=== PATIENT | male | born 1965 | race Hispanic/Latino ===

== ENCOUNTER 2024-02-17 11:06 | Inpatient (IN) | payer MEDICAID ==
[~2024-02-17] VITALS: Ht 175.3 cm; Wt 108.9 kg
[2024-02-17 11:50] VITALS: TEMP 101.4
[2024-02-17] MEDS: acetaMINOPHEN 500 MG TABLET PO ONE (11:50)
[2024-02-17] MEDS: 0.9%NACL 1000ML 1,000 ML IV ONE (11:50)
[2024-02-17 11:59] LABS: BASOPHILS # (AUTO) 0.03 K/uL (0.00-0.20); BASOPHILS % (AUTO) 0.5 % (0.0-5.0); EOSINOPHILS # (AUTO) 0.35 K/uL (0.00-0.70); EOSINOPHILS % (AUTO) 5.4 % (0.0-8.0); HEMATOCRIT 30.7 % (42-54); IMMATURE GRANULOCYTE ABSOLUTE 0.02 K/uL (0-1); LYMPHOCYTES # (AUTO) 1.2 K/uL (1.0-4.8); LYMPHOCYTES % (AUTO) 18.7 % (21.0-51.0); MEAN CORPUSCULAR HEMOGLOBIN 32.5 pg (27.0-33.0); MEAN CORPUSCULAR HGB CONC 35.2 g/dL (32.0-36.0); MEAN CORPUSCULAR VOLUME 92.5 fL (79-99); MONOCYTES # (AUTO) 0.5 K/uL (0.1-1.0); MONOCYTES % (AUTO) 7.4 % (3.0-13.0); NEUTROPHILS # (AUTO) 4.4 K/uL (1.8-7.7); NEUTROPHILS % (AUTO) 67.7 % (40.0-77.0); PLATELET COUNT (AUTO) 137 K/uL (130-400); RED BLOOD CELL COUNT(AUTO) 3.32 MIL/uL (4.50-6.20); RED CELL DISTRIBUTION WIDTH 14.5 % (11.0-15.5); WHITE BLOOD COUNT (AUTO) 6.5 K/uL (4.8-10.8)
[2024-02-17 12:10] LABS: CREATININE 0.8 mg/dL (0.5-1.3); POTASSIUM 3.6 mmol/L (3.5-5.1)
--- NOTE | 2024-02-17 12:40 | ERN ---
General Chief Complaint: Fever Stated Complaint: INSECT BITES,RASH ON BOTH FOREARMS AND NECK X2WKS Time Seen by MD: 11:06 Time Seen by Midlevel: 11:06 Source: patient History of Present Illness Initial Comments This is a 58-year-old male with no significant past medical history presenting to the emergency department with a rash to his bilateral upper extremities. Patient states he slept at a new home yesterday and believes he may have been bitten by insects. This morning he woke up with insect bites. He does report the insect bites being pruritic in nature so he had been scratching all day. He developed a rash throughout his entire right and left forearm. He reports clear drainage from the area in an increase in pain. Denies any fever, chills, or any other symptoms at this time. Allergies: Coded Allergies: No Known Allergies (Unverified Allergy, Unknown, 02/17/24) Past Medical History Past Medical History: No Pertinent History Past Surgical History: None ROS Dictation CONSTITUTIONAL: Negative except for HPI HEAD/FACE: Negative except for HPI EENT: Negative except for HPI RESPIRATORY: Negative except for HPI GASTROINTESTINAL/ABDOMINAL: Negative except for HPI GENITOURINARY: Negative except for HPI MUSCULOSKELETAL: Negative except for HPI INTEGUMENTARY: Negative except for HPI NEUROLOGICAL/PSYCH: Negative except for HPI HEMATOLOGIC/LYMPHATIC: Negative except for HPI All Systems Negative, Except as noted above. 13 point review of systems assessed and all negative except for above. Physical Exam Physical Exam Dictation Vital Signs reviewed General Appearance: Alert, oriented x 3, no acute distress, well developed, nourished. Head and Face: non-traumatic. Eyes: PERRL, pink conjunctivas, eyelid no trauma, anterior chamber with arcus senilis. Ears: Pinnas intact and no signs of trauma or erythema ear canals clear and no discharge TM no erythema Nose: No discharge, no bleeding. Oropharynx: Mouth normal, tongue pink, pharynx clear,no erythema, tonsils no exudates, no abscesses noted, mucous membrane moist Neck: Supple, non-tender, no thyromegaly, no masses, no JVD, no bruits Breast:Deferred Chest:No tenderness, no crepitus, no paradoxical movement, no retractions Lungs:Clear, well-ventilated, symmetric, no rales, no wheezing, no rhonchi, no stridor, good breath sounds bilaterally Heart: Regular rate, regular rhythm, no murmur, no gallops Vascular: no peripheral edema, Abdomen: Soft, positive bowel sounds, nondistended, no guarding, nontender, no rebound, no masses no hepatomegaly, no splenomegaly, no Rdz's sign, no hernias. Rectal: Deferred Genital: Deferred Neurological: Normal speech, motor function intact, sensory function intact Musculoskeletal: Neck nontender, full range of motion, back nontender, full range of motion, Extremities: nontender, full range of motion Skin: His bilateral forearms erythematous with superficial skin sludging noted with cracks mostly on the posterior aspect of the forearm bilaterally. Erythema extends to the area about the elbow Arm is warm to touch bilaterally. He has associate skin cracking noted. Mild tenderness to palpation. Pulses are intact bilaterally Lymphatic: Deferred Results Laboratory and Microbiology Lab and Micro Result Laboratory Tests Test 02/17/24 11:46 White Blood Count 6.5 K/uL (4.8-10.8) Red Blood Count 3.32 MIL/uL (4.50-6.20) L Hemoglobin 10.8 g/dL (14.0-18.0) L Hematocrit 30.7 % (42-54) L Mean Corpuscular Volume 92.5 fL (79-99) Mean Corpuscular Hemoglobin 32.5 pg (27.0-33.0) Mean Corpuscular Hemoglobin Concent 35.2 g/dL (32.0-36.0) Red Cell Distribution Width 14.5 % (11.0-15.5) Platelet Count 137 K/uL (130-400) Mean Platelet Volume 9.6 fL (7.5-10.5) Immature Granulocyte % (Auto) 0.3 % (0-1) Neutrophils (%) (Auto) 67.7 % (40.0-77.0) Lymphocytes (%) (Auto) 18.7 % (21.0-51.0) L Monocytes (%) (Auto) 7.4 % (3.0-13.0) Eosinophils (%) (Auto) 5.4 % (0.0-8.0) Basophils (%) (Auto) 0.5 % (0.0-5.0) Neutrophils # (Auto) 4.4 K/uL (1.8-7.7) Lymphocytes # (Auto) 1.2 K/uL (1.0-4.8) Monocytes # (Auto) 0.5 K/uL (0.1-1.0) Eosinophils # (Auto) 0.35 K/uL (0.00-0.70) Basophils # (Auto) 0.03 K/uL (0.00-0.20) Absolute Immature Granulocyte (auto 0.02 K/uL (0-1) Nucleated Red Blood Cells 0.0 % (0.0-0.19) Sodium Level 131 mmol/L (136-145) L Potassium Level 3.6 mmol/L (3.5-5.1) Chloride Level 97 mmol/L (101-111) L Carbon Dioxide Level 25 mmol/L (21-32) Blood Urea Nitrogen 16 mg/dL (7-18) Creatinine 0.8 mg/dL (0.5-1.3) Glomerular Filtration Rate Calc 103 mL/min (>90) Random Glucose 125 mg/dL (70-105) H Lactic Acid Level 2.0 mmol/L (0.8-2.5) Total Calcium 8.6 mg/dL (8.5-10.1) Procalcitonin < 0.05 ng/mL (0.05-0.5) L Labs Reviewed?: Yes MDM MDM: This is a 58-year-old male with no significant past medical history who presented to the hospital secondary to redness in the right and left forearm. The patient states he staying in his friend's house around a week ago and slept in one of the beds. Afterwards he noted that he woke up with redness in the bilateral forearm. He tried placing calamine lotion and aloe vera and noted that his skin was sludging of. He was also having itching in the and the redness spread to the shoulder bilaterally. He noted some serous drainage from the arms. He denies being on any antibiotics and currently does not take any medications. Denied starting any new medications at home. He also noted swelling in the and forearm bilaterally. He is able to move his extremities without issues. Denied any numbness in the arms. Denied any chest pain, shortness of breath, abdominal pain, nausea, vomiting. Denied any falls, syncopal episode. He does work outside but denied falling down or brushing his arms with any plants. Labs in the ED were notable for white count of 6.5, hemoglobin was 10.8, platelet count [id number] K, sodium was 137, potassium was 3.6, creatinine was 0.8, blood glucose was 125. Blood work is stable however his physical examination is consistent with cellulitis. Patient is started on vancomycin and cefepime and will be admitted for further observation and management. Case was discussed with the hospitalist on-call who agrees to admit the patient. Differential diagnosis: Cellulitis, allergic reaction, contact dermatitis Rationale: Tests considered and ordered secondary to shared decision making include: Previous outside records reviewed: Old ER visits. Risk of complication and/or morbidity or mortality of patient management: None Medications-Per medication reconciliation Need for hospitalization: Patient does meet criteria for hospitalization. Need for emergency major/minor surgery: No There are no social concerns with this patient. Prescription drug management Prescriptions will include symptomatic care Patient's prior external medical records from other ER visits were reviewed by me as indicated. Prior testing and results from previous visits were reviewed. Prior tests were taken into account with medical decision making and resource utilization, independent historian/historians were used to obtain complete medical history. I independently interpreted the test that were performed, results were reviewed by me and considered findings on radiology if ordered. Medical management and examination interpretation discussions were had by me with other qualified healthcare professionals as indicated for the patient's care. ED Course Orders Procedure Category Date Status Time Cbc With Differential LAB 02/17/24 Complete 11:22 Basic Metabolic Panel LAB 02/17/24 Complete 11:22 Lactic Acid LAB 02/17/24 Complete 11:22 Procalcitonin LAB 02/17/24 Complete 11:22 Blood Cult KORI 02/17/24 In Process 11:22 0.9%Nacl 1000ml (Ns PHA 02/17/24 Complete 1000ml) 11:30 Acetaminophen 500mg PHA 02/17/24 Complete Tab (Tylenol 500mg T 11:30 12 Lead Ekg Tracing- EKG 02/17/24 Resulted Technical 11:24 Vancomycin Protocol PHA 02/17/24 In Process (Vancomycin Protocol 13:00 Cefepime Hcl 1 Gm PHA 02/17/24 In Process Vial (Maxipime 1 Gm Vi 13:00 Vancomycin 2gm/500 Ml PHA 02/17/24 Complete Bag (Vancomycin 2g 14:00 Vancomycin 1g/250ml PHA 02/18/24 In Process Kit (Vancomycin 1g/2 03:00 Vancomycin Trough LAB 02/20/24 Verified 14:00 Infectious Disease CONPHYSVC 02/17/24 Transmitted Consult 13:19 Edm Admit Bridge Order ADM 02/17/24 Transmitted 13:22 Current Medications Medications (Trade) Dose Ordered Sig/Jonatan Route PRN Reason Start Time Stop Time Status Last Admin Dose Admin Acetaminophen (TYLenol 500MG TAB) 1,000 mg ONCE ONCE PO 02/17/24 11:30 02/17/24 11:31 DC 02/17/24 11:50 Cefepime HCl (MAXipime 1 GM vial) 1 gm Q12H IVPB 02/17/24 13:00 02/27/24 12:59 02/17/24 13:52 Sodium Chloride 1,000 ml @ 0 mls/hr ONCE ONCE IV 02/17/24 11:30 02/17/24 11:31 DC 02/17/24 11:50 Vancomycin HCl (Vancomycin Protocol) 1 each AD IV 02/17/24 13:00 03/02/24 12:59 Vital Signs Date Time Temp Pulse Resp B/P (MAP) Pulse Ox O2 Delivery O2 Flow Rate FiO2 02/17/24 11:50 101.5 02/17/24 11:11 101.3 111 20 159/83 99 Room Air 0 DX & DISP Disposition: Discharge Decision to Admit Date: Feb 17, 2024 Departure Impression: Primary Impression: Right forearm cellulitis Additional Impression: Cellulitis of left forearm Condition: Stable Time of Disposition: 12:39 I have reviewed the case, and I agree with, Diagnosis and Plan I performed the substantive portion of the visit. I have reviewed and personally made and approve the management plan that is documented in the note by myself or the ALBINO. I acknowledge for responsibility for the patient's man agement plan. FELICIA TAPIA Feb 17, 2024 12:40
[2024-02-17] MEDS ORDERED: VANCOMYCIN PROTOCOL PER PHARMACY IV SCH (13:00)
[2024-02-17] MEDS: ceFEPime HCL 1 GM VIAL IVPB SCH (13:52)
--- NOTE | 2024-02-17 13:54 | HP ---
[facility] HISTORY AND PHYSICAL Date of Service: Feb 17, 2024 Time of Service: 13:54 HISTORY OF PRESENT ILLNESS: DATE OF SERVICE: 02/17/2024 This is a 58-year-old male with no significant past medical history who presented to the hospital secondary to redness in the right and left forearm. The patient states he staying in his friend's house around a week ago and slept in one of the beds. Afterwards he noted that he woke up with redness in the bilateral forearm. He tried placing calamine lotion and aloe vera and noted that his skin was sludging of. He was also having itching in the and the redness spread to the shoulder bilaterally. He noted some serous drainage from the arms. He denies being on any antibiotics and currently does not take any medications. Denied starting any new medications at home. He also noted swelling in the and forearm bilaterally. He is able to move his extremities without issues. Denied any numbness in the arms. Denied any chest pain, shortness of breath, abdominal pain, nausea, vomiting. Denied any falls, syncopal episode. He does work outside but denied falling down or brushing his arms with any plants. Labs in the ED were notable for white count of 6.5, hemoglobin was 10.8, platelet count [id number] K, sodium was 137, potassium was 3.6, creatinine was 0.8, blood glucose was 125. REVIEW OF SYSTEMS CONSTITUTIONAL: Denies fevers, chills, or night sweats. No unintentional weight loss reported. NEUROLOGICAL: Denies headache, amaurosis fugax, motor weakness, sensory deficit, vertigo/spinning sensation, gait abnormalities, or tremors. ENT: No hearing loss, otalgia, otorrhea, rhinitis, rhinorrhea, hoarseness, or sore throat. CARDIOVASCULAR: Denies any exertional angina, dyspnea on exertion, orthopnea, paroxysmal nocturnal dyspnea, palpitations, life-threatening arrhythmias, claudication. PULMONARY: Denies any shortness of breath, cough, phlegm/sputum, hemoptysis, pleuritic chest pain. SLEEP: Denies morning headaches, daytime somnolence or napping. Denies difficulty falling asleep, staying asleep, waking from sleep. Denies knowledge of snoring. GASTROINTESTINAL: Denies any type of dysphagia to either liquids or solids. Denies nausea, vomiting, pyrosis, early satiety, abdominal pain, diarrhea, constipation, or changes in stool consistency or caliber. Denies coffee-ground emesis, hematemesis, hematochezia, or melanotic stools. GENITOURINARY: Denies frequency, urgency, nocturia, hematuria or incontinence (Storage/Irritative symptoms.) Low urinary stream, straining to void, urinary intermittency or hesitancy, splitting of the voiding stream, terminal dribbling. ENDOCRINOLOGIC: Denies polyuria, polydipsia, polyphagia or heat/cold intolerances. HEMATOLOGIC: Denies thrombophilia/previous clots, or coagulopathy/bleeding disorders. ONCOLOGIC: Denies personal history of malignancy. DERMATOLOGIC: Denies rashes or pruritus. PSYCHIATRIC: Denies any suicidal or homicidal ideation. Denies hallucinations. PAST MEDICAL HISTORY: History of abdominal hernia PAST SURGICAL HISTORY: drinks 2-3 beers per week PAST SOCIAL HISTORY: Denied smoking, alcohol, drug use FAMILY HISTORY: Denied any pertinent family history Coded Allergies: No Known Allergies (Unverified Allergy, Unknown, 02/17/24) PHYSICAL EXAM GENERAL APPEARANCE: The patient is awake, alert, and oriented, in no acute cardiopulmonary distress. NEUROLOGICAL: Cranial nerves II-XII grossly intact. Motor is 5/5 in bilateral upper and lower extremities proximal to distal. No sensory deficits. HEENT: Face is symmetric. Pupils are equal and reactive. Extraocular movements are intact. NECK: Supple. No JVD. No thyromegaly. No submental, submandibular, pre- /postauricular, occipital or supraclavicular lymphadenopathy. CHEST: Normal chest expansion. No Telemetry. LUNGS: Absence of any rales, rhonchi or any wheezing. CARDIOVASCULAR: Regular. S1 and S2 normal. No appreciable rubs, murmurs or gallops. ABDOMEN: Soft, nontender, and nondistended. There is no rebound, voluntary guarding, or rigidity. : Deferred. No Garibay. EXTREMITIES: His bilateral forearms erythematous with superficial skin sludging noted with cracks mostly on the posterior aspect of the forearm bilaterally. Erythema extends to the area about the elbow Arm is warm to touch bilaterally. He has associate skin cracking noted. Mild tenderness to palpation. Pulses are intact bilaterally SKIN: No skin breakdown. Vital Sign (Last 24 Hours) 02/17/24 02/17/24 11:11 11:50 Temp 101.5 Pulse 111 Resp 20 B/P (MAP) 159/83 Pulse Ox 99 O2 Delivery Room Air O2 Flow Rate 0 LABS: Laboratory: Test 02/17/24 11:46 Range/Units White Blood Count 6.5 4.8-10.8 K/uL Red Blood Count 3.32 L 4.50-6.20 MIL/uL Hemoglobin 10.8 L 14.0-18.0 g/dL Hematocrit 30.7 L 42-54 % Mean Corpuscular Volume 92.5 79-99 fL Mean Corpuscular Hemoglobin 32.5 27.0-33.0 pg Mean Corpuscular Hemoglobin Concent 35.2 32.0-36.0 g/dL Red Cell Distribution Width 14.5 11.0-15.5 % Platelet Count 137 130-400 K/uL Mean Platelet Volume 9.6 7.5-10.5 fL Immature Granulocyte % (Auto) 0.3 0-1 % Neutrophils (%) (Auto) 67.7 40.0-77.0 % Lymphocytes (%) (Auto) 18.7 L 21.0-51.0 % Monocytes (%) (Auto) 7.4 3.0-13.0 % Eosinophils (%) (Auto) 5.4 0.0-8.0 % Basophils (%) (Auto) 0.5 0.0-5.0 % Neutrophils # (Auto) 4.4 1.8-7.7 K/uL Lymphocytes # (Auto) 1.2 1.0-4.8 K/uL Monocytes # (Auto) 0.5 0.1-1.0 K/uL Eosinophils # (Auto) 0.35 0.00-0.70 K/uL Basophils # (Auto) 0.03 0.00-0.20 K/uL Absolute Immature Granulocyte (auto 0.02 0-1 K/uL Nucleated Red Blood Cells 0.0 0.0-0.19 % Sodium Level 131 L 136-145 mmol/L Potassium Level 3.6 3.5-5.1 mmol/L Chloride Level 97 L 101-111 mmol/L Carbon Dioxide Level 25 21-32 mmol/L Blood Urea Nitrogen 16 7-18 mg/dL Creatinine 0.8 0.5-1.3 mg/dL Glomerular Filtration Rate Calc 103 >90 mL/min Random Glucose 125 H 70-105 mg/dL Lactic Acid Level 2.0 0.8-2.5 mmol/L Total Calcium 8.6 8.5-10.1 mg/dL Procalcitonin < 0.05 L 0.05-0.5 ng/mL Current Medications Medications (Trade) Dose Ordered Sig/Jonatan Route PRN Reason Start Time Stop Time Status Last Admin Dose Admin Cefepime HCl (MAXipime 1 GM vial) 1 gm Q12H IVPB 02/17/24 13:00 02/27/24 12:59 Vancomycin HCl 250 ml @ 125 mls/hr Q12H IV 02/18/24 03:00 02/28/24 02:59 Vancomycin HCl (Vancomycin Protocol) 1 each AD IV 02/17/24 13:00 03/02/24 12:59 DIAGNOSTICS / RADIOLOGY: [ ] ASSESSMENT: Sepsis secondary to bilateral cellulitis POA Hypertension likely reactive History of abdominal hernia Normocytic anemia PLAN: - patient to be admitted to [facility] -in reference to cellulitis. The patient will be started on vanc cefepime and doxycycline. We will keep the elevated. We will request consultation with Infectious Disease for antibiotic stewardship. We will also do x-ray of the. Patient has received tetanus shot before. Patient to be started on NS for gentle hydration. Additionally he will be on morphine and Toradol p.r.n. for pain control -check procalcitonin, CRP, TSH, hemoglobin A1c. - consult wound care - further orders per hospitalization course. Advanced Care Planning Which of the following were discussed: Hospice care: Yes __ No _x_ Therapeutic options: Yes __ No __ Advance directives: Yes __ No __ Other discussions: pt is full code Discussed with who?: patient (Patient, family or surrogates) Voluntary nature of this service was explained to the patient? Yes _x_ No __ Amount of time spent: 25 minutes CORINE Khan MD, MD Feb 17, 2024 13:54
[2024-02-17] MEDS ORDERED: acetaMINOPHEN 500 MG TABLET PO PRN (14:00)
[2024-02-17 14:30] LABS: INR 1.15 (0.85-1.15); PROTHROMBIN TIME 12.3 SEC (9.6-11.6)
[2024-02-17 14:32] LABS: PARTIAL THROMBOPLASTIN TIME 26.8 SEC (26.3-35.5)
[2024-02-17 14:36] LABS: HEMOGLOBIN A1C 5.1 % (4.0-6.0)
[2024-02-17 14:58] LABS: THYROID STIMULATING HORMONE 2.94 uIU/mL (0.36-3.74)
[2024-02-17] MEDS: VANCOMYCIN 2GM/500 ML BAG 500 ML IV ONE (15:25)
[2024-02-17] MEDS ORDERED: PoTASSium chl 10% ELIXIR 20MEQ 20 MEQ/15 ML UDCUP PO PRN (15:30)
[2024-02-17] MEDS ORDERED: MAGNESIUM 2GM PREMIX 50ML 50 ML IV PRN (15:30)
[2024-02-17] MEDS ORDERED: PoTASSium chloRIDE 20MEQ/100ML 100 ML IV PRN (15:30)
[2024-02-17] MEDS: DOXYCYCLINE 100MG+NS 250ML 250 ML IV SCH (15:35)
[2024-02-17] MEDS: morPHINE 2 MG SYG IVP PRN (16:57)
--- NOTE | 2024-02-17 17:18 | HMCIMG ---
WRIST 2VWS RT HISTORY: Cellulitis and swelling COMPARISON: None TECHNIQUE: 2 images of right wrist were obtained. FINDINGS: Erosive changes are seen of scaphoid, lunate. Radiocarpal joint space narrowing is seen. There is no acute displaced fracture or dislocation. Degenerative changes are seen. IMPRESSION: 1. Findings as described above.
--- NOTE | 2024-02-17 17:20 | HMCIMG ---
WRIST 2VWS LT HISTORY: Cellulitis, swelling COMPARISON: None TECHNIQUE: 2 images of left wrist were obtained. FINDINGS: Radiocarpal joint space narrowing is seen. There is no acute displaced fracture or dislocation. Degenerative changes are seen. IMPRESSION: 1. Findings as described above.
--- NOTE | 2024-02-17 17:27 | HMCIMG ---
FOREARM 2VWS LT HISTORY: Cellulitis and swelling COMPARISON: None TECHNIQUE: 2 images of left forearm were obtained. FINDINGS: There is no acute displaced fracture or dislocation. There is soft tissue swelling. Degenerative changes are seen. IMPRESSION: 1. Findings as described above.
--- NOTE | 2024-02-17 17:33 | HMCIMG ---
SHOULDER COMP 2+VWS RT HISTORY: Cellulitis COMPARISON: None TECHNIQUE: 2 images of right shoulder were obtained. FINDINGS: There is no acute displaced fracture or dislocation. Degenerative changes are seen. IMPRESSION: 1. Findings as described above.
--- NOTE | 2024-02-17 17:34 | HMCIMG ---
FOREARM 2VWS RT HISTORY: Cellulitis COMPARISON: None TECHNIQUE: 2 images of right forearm were obtained. FINDINGS: There is no acute displaced fracture or dislocation. There is soft tissue swelling. Degenerative changes are seen. IMPRESSION: 1. Findings as described above.
--- NOTE | 2024-02-17 17:51 | HMCIMG ---
SHOULDER COMP 2+VWS LT HISTORY: Cellulitis, swelling COMPARISON: None TECHNIQUE: 2 images of left shoulder were obtained FINDINGS: There is no acute displaced fracture or dislocation. Degenerative changes are seen. IMPRESSION: 1. Findings as described above.
[2024-02-17] MEDS: 0.9%NACL 1000ML 1,000 ML IV SCH (18:41)
--- NOTE | 2024-02-17 18:58 | EKG ---
[facility] Test Date: 2024-02-17 Test Time: 11:27:34 Pat Name: STEW THORNTON Department: EDHIP Room: ED [facility] Gender: M Inside Sales Consultant: [id number] : 1965 Requested By: FELICIA TAPIA Order Number: [id number] Reading MD: Jose Luis Benson Measurements Intervals [place] Rate: 88 P: 34 CA: 159 QRS: 11 QRSD: 91 T: 38 QT: 347 QTc: 421 Interpretive Statements Sinus rhythm No previous ECG available for comparison Electronically Signed On 02-17-2024 19:11:04 GASTROENTEROLOGY NURSE PRACTITIONER by Jose Luis Benson Please click the below link to view image of tracing.
[2024-02-17] MEDS ORDERED: chlordiazePOXIDE HCL 25 MG CAP PO PRN (19:30)
[2024-02-17] MEDS ORDERED: LORazepam 2 MG/ML 1 ML VIAL IVP PRN (19:30)
[2024-02-17] MEDS ORDERED: PHARMACY COMMUNICATION MISC PRN (19:30)
[2024-02-17] MEDS ORDERED: hydrALAZine 20MG/ML VIAL IV PRN (19:30)
[2024-02-17] MEDS: hydrALAZine 20MG/ML VIAL IV PRN (19:35)
[2024-02-17 21:30] VITALS: BP 168/79; PULSE 86; RESP 22; TEMP 98
[2024-02-17] MEDS: amLODIPine 5 MG TAB PO ONE (22:26)
[2024-02-17] MEDS: FAMOTIDINE 20MG VIAL IV SCH (22:27)
[2024-02-17] MEDS: NITROGLYCERIN 1GM OINT 1 INCH/1GM TD SCH (22:27)
[2024-02-17] MEDS: DiphenhydrAMINE HCL 50 MG/ML VIAL IV PRN (23:09)
--- NOTE | 2024-02-18 01:21 | CONS ---
CONSULTING PHYSICIAN: Adelfo Wheeler MD CONSULTING SERVICE: Hospitalist Service. REASON FOR CONSULTATION: Bilateral forearm cellulitis. HISTORY OF PRESENT ILLNESS: This is a 58-year-old gentleman, no history of any significant medical problems, has been brought to [facility] with significant erythema, cellulitis, and swelling of the bilateral forearms. He said he is from [place] and he slept in one of his brother's house, which has not been used for quite some time and he suspects some bugs injuring his skin. He tried to scratch and therefore developed multiple rashes on the bilateral forearms. No history of any trauma or falls. No history of any fevers or chills. PAST MEDICAL HISTORY: Nothing significant. PAST SURGICAL HISTORY: Abdominal hernia. SOCIAL HISTORY: Does not smoke, alcohol or drugs. FAMILY HISTORY: Nothing significant. ALLERGIES: None. MEDICATIONS: None. PHYSICAL EXAMINATION: GENERAL: The patient is awake, alert, oriented x 3, moderately built and nourished. VITAL SIGNS: Temperature is 101.5, pulse is 111, respiratory rate is 20, blood pressure 159/83, pulse oximetry 99% on room air. HEENT: Normocephalic, atraumatic. NECK: No engorged vein. CHEST: Symmetric movement is seen. ABDOMEN: Soft, nontender, nondistended. No pelvic tenderness on compression or distraction. EXTREMITIES: Examination of the right forearm and right upper extremity shows significant swelling of the right forearm presents. The swelling is soft and compressible. Multiple rashes present on the right forearm on extensor and volar aspect. Erythema present also, some abrasions and scratches present on the forearm. Fingers are warm and pink. Good capillary refill is present. Motor, sensory is grossly intact. Radial arteries 2+. Examination of the left forearm shows again swelling present. Fingers are warm and pink. Good capillary refill is present. Erythema present. Mild warmth present. Significant rashes present. INVESTIGATIONS: White cell count is 6.5, hemoglobin 10.8, hematocrit is 30.7. X-rays of both the right and left wrist does not show any obvious fractures or dislocation. ASSESSMENT AND PLAN: A 58-year-old man with bilateral forearm cellulitis. The patient will keep the arm elevated. Adequate pain control. Then, ice packs and then if the patient has any problems related to increased swelling or compartment syndrome or anything similar, the patient will need orthopedic intervention, but otherwise we will follow the patient peripherally. No surgery for right now. TID: [id number] RECEIPT: [id number]
[2024-02-18 03:28] VITALS: BP 131/63; PULSE 76; RESP 21; TEMP 98.4
[2024-02-18 05:01] LABS: BASOPHILS # (AUTO) 0.03 K/uL (0.00-0.20); BASOPHILS % (AUTO) 0.6 % (0.0-5.0); EOSINOPHILS # (AUTO) 0.44 K/uL (0.00-0.70); EOSINOPHILS % (AUTO) 8.6 % (0.0-8.0); IMMATURE GRANULOCYTE ABSOLUTE 0.03 K/uL (0-1); LYMPHOCYTES # (AUTO) 1.3 K/uL (1.0-4.8); LYMPHOCYTES % (AUTO) 26.1 % (21.0-51.0); MEAN CORPUSCULAR HEMOGLOBIN 32.9 pg (27.0-33.0); MEAN CORPUSCULAR HGB CONC 34.5 g/dL (32.0-36.0); MEAN CORPUSCULAR VOLUME 95.4 fL (79-99); MONOCYTES # (AUTO) 0.4 K/uL (0.1-1.0); MONOCYTES % (AUTO) 8.2 % (3.0-13.0); NEUTROPHILS # (AUTO) 2.9 K/uL (1.8-7.7); NEUTROPHILS % (AUTO) 55.9 % (40.0-77.0); PLATELET COUNT (AUTO) 130 K/uL (130-400); RED BLOOD CELL COUNT(AUTO) 3.25 MIL/uL (4.50-6.20); RED CELL DISTRIBUTION WIDTH 14.3 % (11.0-15.5); WHITE BLOOD COUNT (AUTO) 5.1 K/uL (4.8-10.8)
[2024-02-18 05:12] LABS: CREATININE 0.8 mg/dL (0.5-1.3); POTASSIUM 3.5 mmol/L (3.5-5.1)
[2024-02-18] MEDS: FOLic ACID 1 MG TABLET PO SCH (07:53)
[2024-02-18] MEDS: amLODIPine 5 MG TAB PO SCH (07:53)
[2024-02-18] MEDS: THIAMINE HCL 100 MG/ML 2ML VIAL IVP SCH (07:54)
[2024-02-18 08:00] VITALS: BP 162/90; PULSE 71; RESP 18; TEMP 98.6; O2SAT 99
[2024-02-18] MEDS: VANCOMYCIN 1G/250ML KIT 250 ML IV SCH (08:48)
[2024-02-18 12:00] VITALS: BP 163/88; PULSE 81; RESP 18; TEMP 98.2
[2024-02-18 12:25] LABS: AMPHET/METH SCREEN,URINE NEGATIVE (NEGATIVE); BARBITURATE SCREEN, URINE POSITIVE (NEGATIVE); BENZODIAZEPINES SCREEN,URINE NEGATIVE (NEGATIVE); CANNABINOID SCREEN,URINE POSITIVE (NEGATIVE); COCAINE SCREEN,URINE NEGATIVE (NEGATIVE); OPIATE SCREEN,URINE NEGATIVE (NEGATIVE); PHENCYCLIDINE SCREEN,URINE NEGATIVE (NEGATIVE)
[2024-02-18] MEDS: CLOTRIMAZOLE/BETAMETHASONE DIP 45 GM CREAM.GM. TP SCH (12:56)
--- NOTE | 2024-02-18 13:33 | PN ---
[facility] PROGRESS NOTE Date of Service: Feb 18, 2024 Time of Service: 13:31 Patient was seen and examined on the medical floor and case discussed with RN. Case also discussed with infectious disease physician Dr. Zapata. His antibiotics have been adjusted and he is also antifungal cream for his itchy bilateral forearms with significant cellulitis and scratch perez SUBJECTIVE: [ ] REVIEW OF SYSTEMS CONSTITUTIONAL: Denies fevers, chills, or night sweats. No unintentional weight loss reported. NEUROLOGICAL: Denies headache, amaurosis fugax, motor weakness, sensory def icit, vertigo/spinning sensation, gait abnormalities, or tremors. ENT: No hearing loss, otalgia, otorrhea, rhinitis, rhinorrhea, hoarseness, or sore throat. CARDIOVASCULAR: Denies any exertional angina, dyspnea on exertion, orthopnea, paroxysmal nocturnal dyspnea, palpitations, life-threatening arrhythmias, claudication. PULMONARY: Denies any shortness of breath, cough, phlegm/sputum, hemoptysis, pleuritic chest pain. SLEEP: Denies morning headaches, daytime somnolence or napping. Denies difficulty falling asleep, staying asleep, waking from sleep. Denies knowledge of snoring. GASTROINTESTINAL: Denies any type of dysphagia to either liquids or solids. Denies nausea, vomiting, pyrosis, early satiety, abdominal pain, diarrhea, constipation, or changes in stool consistency or caliber. Denies coffee-ground emesis, hematemesis, hematochezia, or melanotic stools. GENITOURINARY: Denies frequency, urgency, nocturia, hematuria or incontinence (Storage/Irritative symptoms.) Low urinary stream, straining to void, urinary intermittency or hesitancy, splitting of the voiding stream, terminal dribbling. ENDOCRINOLOGIC: Denies polyuria, polydipsia, polyphagia or heat/cold intolerances. HEMATOLOGIC: Denies thrombophilia/previous clots, or coagulopathy/bleeding disorders. ONCOLOGIC: Denies personal history of malignancy. DERMATOLOGIC: Denies rashes or pruritus. PSYCHIATRIC: Denies any suicidal or homicidal ideation. Denies hallucinations. PHYSICAL EXAM GENERAL APPEARANCE: The patient is awake, alert, and oriented, in no acute cardiopulmonary distress. NEUROLOGICAL: Cranial nerves II-XII grossly intact. Motor is 5/5 in bilateral upper and lower extremities proximal to distal. No sensory deficits. HEENT: Face is symmetric. Pupils are equal and reactive. Extraocular movements are intact. NECK: Supple. No JVD. No thyromegaly. No submental, submandibular, pre- /postauricular, occipital or supraclavicular lymphadenopathy. CHEST: Normal chest expansion. No Telemetry. LUNGS: Absence of any rales, rhonchi or any wheezing. CARDIOVASCULAR: Regular. S1 and S2 normal. No appreciable rubs, murmurs or gallops. ABDOMEN: Soft, nontender, and nondistended. There is no rebound, voluntary guarding, or rigidity. : Deferred. No Garibay. EXTREMITIES: His bilateral forearms erythematous with superficial skin sludging noted with cracks mostly on the posterior aspect of the forearm bilaterally. Erythema extends to the area about the elbow Arm is warm to touch bilaterally. He has associate skin cracking noted. Mild tenderness to palpation. Pulses are intact bilaterally SKIN: No skin breakdown. Vital Signs (last 8hr) Date Time Temp Pulse Resp B/P (MAP) Pulse Ox O2 Delivery O2 Flow Rate FiO2 02/18/24 08:00 99 Room Air* 0 21 02/18/24 08:00 98.6 71 18 162/90 99 Room Air 21 LABS: Laboratory: Test 02/18/24 04:12 02/17/24 16:44 02/17/24 14:10 02/17/24 11:40 Range/Units White Blood Count 5.1 4.8-10.8 K/uL Red Blood Count 3.25 L 4.50-6.20 MIL/uL Hemoglobin 10.7 L 14.0-18.0 g/dL Hematocrit 31.0 L 42-54 % Mean Corpuscular Volume 95.4 79-99 fL Mean Corpuscular Hemoglobin 32.9 27.0-33.0 pg Mean Corpuscular Hemoglobin Concent 34.5 32.0-36.0 g/dL Red Cell Distribution Width 14.3 11.0-15.5 % Platelet Count 130 130-400 K/uL Mean Platelet Volume 9.8 7.5-10.5 fL Immature Granulocyte % (Auto) 0.6 0-1 % Neutrophils (%) (Auto) 55.9 40.0-77.0 % Lymphocytes (%) (Auto) 26.1 21.0-51.0 % Monocytes (%) (Auto) 8.2 3.0-13.0 % Eosinophils (%) (Auto) 8.6 H 0.0-8.0 % Basophils (%) (Auto) 0.6 0.0-5.0 % Neutrophils # (Auto) 2.9 1.8-7.7 K/uL Lymphocytes # (Auto) 1.3 1.0-4.8 K/uL Monocytes # (Auto) 0.4 0.1-1.0 K/uL Eosinophils # (Auto) 0.44 0.00-0.70 K/uL Basophils # (Auto) 0.03 0.00-0.20 K/uL Absolute Immature Granulocyte (auto 0.03 0-1 K/uL Nucleated Red Blood Cells 0.0 0.0-0.19 % Sodium Level 137 136-145 mmol/L Potassium Level 3.5 3.5-5.1 mmol/L Chloride Level 103 101-111 mmol/L Carbon Dioxide Level 26 21-32 mmol/L Blood Urea Nitrogen 9 7-18 mg/dL Creatinine 0.8 0.5-1.3 mg/dL Glomerular Filtration Rate Calc 103 >90 mL/min Random Glucose 89 70-105 mg/dL Total Calcium 8.2 L 8.5-10.1 mg/dL Lactic Acid Level 1.3 0.8-2.5 mmol/L Prothrombin Time 12.3 H 9.6-11.6 SEC Prothromb Time International Ratio 1.15 0.85-1.15 Activated Partial Thromboplast Time 26.8 26.3-35.5 SEC Hemoglobin A1c 5.1 4.0-6.0 % Estimated Average Glucose (eAG) 100 70-126 mg/dL Total Creatine Kinase 58 21-232 U/L C-Reactive Protein, Quantitative 13.60 H 0.5-3.0 mg/L Procalcitonin < 0.05 L 0.05-0.5 ng/mL Thyroid Stimulating Hormone (TSH) 2.94 0.36-3.74 uIU/mL Urine Opiates Screen NEGATIVE NEGATIVE Urine Barbiturates Screen POSITIVE H NEGATIVE Urine Phencyclidine Screen NEGATIVE NEGATIVE Urine Amphetamines Screen NEGATIVE NEGATIVE Urine Benzodiazepines Screen NEGATIVE NEGATIVE Urine Cocaine Screen NEGATIVE NEGATIVE Urine Marijuana (THC) Screen POSITIVE H NEGATIVE Current Medications Medications (Trade) Dose Ordered Sig/Jonatan Route PRN Reason Start Time Stop Time Status Last Admin Dose Admin Acetaminophen (TYLenol 500MG TAB) 500 mg Q6H PRN PO MILD PAIN (1-3) 02/17/24 14:00 03/18/24 13:59 Amlodipine Besylate (NorvASC 5MG TAB) 5 mg DAILY PO 02/18/24 09:00 03/19/24 08:59 02/18/24 07:53 5 MG Cefepime HCl (MAXipime 1 GM vial) 1 gm Q12H IVPB 02/17/24 13:00 02/18/24 12:22 DC 02/18/24 12:07 1 GM Chlordiazepoxide HCl (LIBrium 25 MG CAP) 25 mg Q2H PRN PO ALCOHOL WITHDRAWAL PROTOCOL 02/17/24 19:30 02/24/24 19:29 Clotrimazole (Lotrisone Cream) 1 APPL AM TP 02/18/24 12:30 03/19/24 12:29 02/18/24 12:56 1 GM Diphenhydramine HCl (BENAdryl INJ) 25 mg Q4H PRN IV ITCHING 02/17/24 23:00 03/18/24 22:59 02/17/24 23:09 25 MG Doxycycline Hyclate 250 ml @ 125 mls/hr Q12H IV 02/17/24 14:00 02/18/24 12:22 DC 02/18/24 04:42 125 MLS/HR Famotidine (Pepcid 20mg Vial) 20 mg BID IV 02/17/24 21:00 03/18/24 20:59 02/18/24 07:54 20 MG Fluconazole (DiFLUCan 100 mg TAB) 200 mg DAILY PO 02/19/24 09:00 03/20/24 08:59 Folic Acid (FOLic ACID 1 MG TABLET) 1 mg DAILY PO 02/18/24 09:00 03/19/24 08:59 02/18/24 07:53 1 MG Hydralazine HCl (APRESOLine 20MG INJ) 10 mg Q2H PRN IV ADMINISTER FOR SBP > 160 02/17/24 19:30 03/18/24 19:29 02/17/24 19:35 10 MG Hydralazine HCl (APRESOLine 20MG INJ) 10 mg Q6H PRN IV ADMINISTER FOR SBP > 180 02/17/24 19:30 02/17/24 19:27 DC Ketorolac Tromethamine (toRADol) 15 mg Q6H PRN IV MODERATE PAIN (4-6) 02/17/24 14:00 02/22/24 13:59 Lorazepam (AtiVAN) 1 mg Q4H PRN IVP ALCOHOL WITHDRAWAL PROTOCOL 02/17/24 19:30 02/24/24 19:29 Magnesium Sulfate 50 ml @ 0 mls/hr PROTOCOL PRN IV hypomagnesemia 02/17/24 15:30 03/18/24 15:29 Morphine Sulfate (morPHINE 2MG SYG) 2 mg Q6H PRN IVP SEVERE PAIN (7-10) 02/17/24 14:00 02/24/24 13:59 02/17/24 18:41 2 MG Nitroglycerin (Nitroglycerin 1gm Oint) 1 inch Q8H TD 02/17/24 19:30 03/18/24 19:29 02/17/24 22:27 1 [facility] Pharmacy Profile Note (Pharmacy Communication) 1 each PROTOCOL PRN MISC ETOH Withdrawal Score changes 02/17/24 19:30 02/17/24 19:24 DC Potassium Chloride 100 ml @ 100 mls/hr AD PRN IV POTASSIUM PROTOCOL 02/17/24 15:30 03/18/24 15:29 Potassium Chloride (K-Dur/Klor-Con 20meq) 20 meq AD PRN PO POTASSIUM PROTOCOL 02/17/24 15:30 03/18/24 15:29 Potassium Chloride (KCl 10% Elixir 20meq/15ml) 20 meq AD PRN PO POTASSIUM PROTOCOL 02/17/24 15:30 03/18/24 15:29 Sodium Chloride 1,000 ml @ 125 mls/hr Q8H IV 02/17/24 14:00 03/18/24 13:59 02/18/24 08:05 125 MLS/HR Thiamine HCl (Vitamin B-1) 100 mg DAILY IVP 02/18/24 09:00 03/19/24 08:59 02/18/24 07:54 100 MG Vancomycin HCl 250 ml @ 125 mls/hr Q12H IV 02/18/24 03:00 02/28/24 02:59 02/18/24 08:48 125 MLS/HR Vancomycin HCl (Vancomycin Protocol) 1 each AD IV 02/17/24 13:00 03/02/24 12:59 DIAGNOSTICS / RADIOLOGY: [ ] ASSESSMENT: Sepsis secondary to bilateral cellulitis POA Hypertension likely reactive History of abdominal hernia Normocytic anemia PLAN: - patient to be admitted to [facility] -in reference to cellulitis. ID evaluated and adjusted antibiotics. Additionally he will be on morphine and Toradol p.r.n. for pain control -check procalcitonin, CRP, TSH, hemoglobin A1c. -wound care - further orders per hospitalization course. Advanced Care Planning Which of the following were discussed: Hospice care: Yes __ No _x_ Therapeutic options: Yes __ No __ Advance directives: Yes __ No __ Other discussions: pt is full code Discussed with who?: patient (Patient, family or surrogates) Voluntary nature of this service was explained to the patient? Yes _x_ No __ Amount of time spent: 25 minutes MD DAVID Santiago SATISH MD Feb 18, 2024 13:33
[2024-02-18 16:00] VITALS: BP 174/77; PULSE 79; RESP 17; TEMP 98.7
[2024-02-18 20:00] VITALS: BP 137/77; PULSE 71; RESP 22; TEMP 98.4
[2024-02-18 22:16] VITALS: O2SAT 100
[2024-02-19] VITALS (8 sets, daily range): BP systolic 132–159; BP diastolic 71–83; PULSE 57–73; RESP 18–22; TEMP 97.8–98.5; O2SAT 99–100
[2024-02-19 04:00] LABS: BASOPHILS # (AUTO) 0.03 K/uL (0.00-0.20); BASOPHILS % (AUTO) 0.6 % (0.0-5.0); EOSINOPHILS # (AUTO) 0.29 K/uL (0.00-0.70); EOSINOPHILS % (AUTO) 5.9 % (0.0-8.0); IMMATURE GRANULOCYTE ABSOLUTE 0.02 K/uL (0-1); LYMPHOCYTES # (AUTO) 1.5 K/uL (1.0-4.8); LYMPHOCYTES % (AUTO) 30.7 % (21.0-51.0); MEAN CORPUSCULAR HEMOGLOBIN 32.2 pg (27.0-33.0); MEAN CORPUSCULAR HGB CONC 34.7 g/dL (32.0-36.0); MEAN CORPUSCULAR VOLUME 92.8 fL (79-99); MONOCYTES # (AUTO) 0.4 K/uL (0.1-1.0); MONOCYTES % (AUTO) 7.5 % (3.0-13.0); NEUTROPHILS # (AUTO) 2.7 K/uL (1.8-7.7); NEUTROPHILS % (AUTO) 54.9 % (40.0-77.0); PLATELET COUNT (AUTO) 129 K/uL (130-400); RED BLOOD CELL COUNT(AUTO) 3.45 MIL/uL (4.50-6.20); WHITE BLOOD COUNT (AUTO) 4.9 K/uL (4.8-10.8)
[2024-02-19 04:14] LABS: CREATININE 0.6 mg/dL (0.5-1.3); POTASSIUM 3.3 mmol/L (3.5-5.1)
[2024-02-19] MEDS: fluCONazole 100 MG TAB PO SCH (08:49)
[2024-02-19] MEDS: ENOXAPARIN SODIUM 30 MG/0.3 ML SQ SCH (08:54)
--- NOTE | 2024-02-19 10:25 | CONS ---
DATE OF SERVICE: 02/18/2024. INFECTIOUS DISEASE CONSULTATION NOTE REQUESTING PHYSICIAN: Dr. Adelfo Wheeler. REASON FOR CONSULTATION: Bilateral upper extremity. HISTORY OF PRESENT ILLNESS: This is a 58-year-old male with obesity, came to the Emergency Room with bilateral forearm swelling and redness. The patient also claims symptoms started suddenly after waking up. The patient claims he came from [place] to help his brother was seen in . The patient found with cellulitis and some excoriation and was admitted. No fever or chills. Imaging has been done, which came back negative. No rashes or itchiness. PAST MEDICAL HISTORY: Obesity. PAST SURGICAL HISTORY: Ventral hernia repair. ALLERGIES: No known drug allergy. HOME MEDICATIONS: Reviewed. SOCIAL HISTORY: No alcohol, tobacco or illicit drug use. FAMILY HISTORY: Noncontributory. REVIEW OF SYSTEMS: Greater than 10 systems were reviewed, negative except as documented above. PHYSICAL EXAMINATION: GENERAL: A middle-aged male, awake. VITAL SIGNS: Temperature 98.6, pulse 71, respiratory rate 18, and BP 162/90. EYES: No icterus. Pupils equal and reactive. HENT: No oral thrush seen. Moist oral mucosa. NECK: Supple, no JVD or thyromegaly. LUNGS: Good air entry. No rales, no rhonchi. CARDIOVASCULAR: S1, S2 regular. No murmur heard. ABDOMEN: Obese, soft, and nontender. Bowel sounds present. CENTRAL NERVOUS SYSTEM: Awake, alert, and oriented x 3. No focal deficits. SKIN: The patient has 3 lesions involving the neck area and bilateral forearms. No drainage is seen. LYMPHATIC: No peripheral lymphadenopathy. BACK: No deformity, no pressure ulcer. EXTREMITIES: The patient with possible dermatophytosis involving both forearms. LABORATORY DATA: Sodium 137, potassium 3.5, BUN 9, and creatinine 0.8. WBC 5.1, hemoglobin 10.7, and platelet 130. ASSESSMENT: A 58-year-old male with multiple problems, which include: * Right upper extremity cellulitis. * Left upper extremity cellulitis. * Possible dermatophytosis. * Obesity. PLAN: * Discontinue doxycycline. * Discontinue cefepime. * Continue vancomycin. * Start the patient on fluconazole. * ____ to dyskinesia. * Continue pain management. * Continue GI prophylaxis. * The patient will be followed up closely. TID: [id number] RECEIPT: [id number]
--- NOTE | 2024-02-19 13:15 | PN ---
[facility] PROGRESS NOTE Date of Service: Feb 19, 2024 Time of Service: 13:14 Patient was seen and examined. Case discussed with the RN and family by the bedside. He has biatrial forearm erythema is getting better. He is itching is also better today. He denies any nausea vomiting fever or chills SUBJECTIVE: [ ] REVIEW OF SYSTEMS CONSTITUTIONAL: Denies fevers, chills, or night sweats. No unintentional weight loss reported. NEUROLOGICAL: Denies headache, amaurosis fugax, motor weakness, sensory deficit, vertigo/spinning sensation, gait abnormalities, or tremors. ENT: No hearing loss, otalgia, otorrhea, rhinitis, rhinorrhea, hoarseness, or sore throat. CARDIOVASCULAR: Denies any exertional angina, dyspnea on exertion, orthopnea, paroxysmal nocturnal dyspnea, palpitations, life-threatening arrhythmias, claudication. PULMONARY: Denies any shortness of breath, cough, phlegm/sputum, hemoptysis, pleuritic chest pain. SLEEP: Denies morning headaches, daytime somnolence or napping. Denies difficulty falling asleep, staying asleep, waking from sleep. Denies knowledge of snoring. GASTROINTESTINAL: Denies any type of dysphagia to either liquids or solids. Denies nausea, vomiting, pyrosis, early satiety, abdominal pain, diarrhea, constipation, or changes in stool consistency or caliber. Denies coffee-ground emesis, hematemesis, hematochezia, or melanotic stools. GENITOURINARY: Denies frequency, urgency, nocturia, hematuria or incontinence (Storage/Irritative symptoms.) Low urinary stream, straining to void, urinary intermittency or hesitancy, splitting of the voiding stream, terminal dribbling. ENDOCRINOLOGIC: Denies polyuria, polydipsia, polyphagia or heat/cold intolerances. HEMATOLOGIC: Denies thrombophilia/previous clots, or coagulopathy/bleeding disorders. ONCOLOGIC: Denies personal history of malignancy. DERMATOLOGIC: Denies rashes or pruritus. PSYCHIATRIC: Denies any suicidal or homicidal ideation. Denies hallucinations. PHYSICAL EXAM GENERAL APPEARANCE: The patient is awake, alert, and oriented, in no acute cardiopulmonary distress. NEUROLOGICAL: Cranial nerves II-XII grossly intact. Motor is 5/5 in bilateral upper and lower extremities proximal to distal. No sensory deficits. HEENT: Face is symmetric. Pupils are equal and reactive. Extraocular movements are intact. NECK: Supple. No JVD. No thyromegaly. No submental, submandibular, pre- /postauricular, occipital or supraclavicular lymphadenopathy. CHEST: Normal chest expansion. No Telemetry. LUNGS: Absence of any rales, rhonchi or any wheezing. CARDIOVASCULAR: Regular. S1 and S2 normal. No appreciable rubs, murmurs or gallops. ABDOMEN: Soft, nontender, and nondistended. There is no rebound, voluntary guarding, or rigidity. : Deferred. No Garibay. EXTREMITIES: His bilateral forearms erythematous with superficial skin sludging noted with cracks mostly on the posterior aspect of the forearm bilaterally. Erythema extends to the area about the elbow Arm is warm to touch bilaterally. He has associate skin cracking noted. Mild tenderness to palpation. Pulses are intact bilaterally SKIN: No skin breakdown. Vital Signs (last 8hr) Date Time Temp Pulse Resp B/P (MAP) Pulse Ox O2 Delivery O2 Flow Rate FiO2 02/19/24 11:53 98.1 57 20 159/83 99 Room Air 02/19/24 08:45 99 Room Air* 0 21 02/19/24 08:19 97.9 72 18 144/81 99 Room Air LABS: Laboratory: Test 02/19/24 03:43 02/17/24 16:44 02/17/24 14:10 Range/Units White Blood Count 4.9 4.8-10.8 K/uL Red Blood Count 3.45 L 4.50-6.20 MIL/uL Hemoglobin 11.1 L 14.0-18.0 g/dL Hematocrit 32.0 L 42-54 % Mean Corpuscular Volume 92.8 79-99 fL Mean Corpuscular Hemoglobin 32.2 27.0-33.0 pg Mean Corpuscular Hemoglobin Concent 34.7 32.0-36.0 g/dL Red Cell Distribution Width 14.0 11.0-15.5 % Platelet Count 129 L 130-400 K/uL Mean Platelet Volume 9.4 7.5-10.5 fL Immature Granulocyte % (Auto) 0.4 0-1 % Neutrophils (%) (Auto) 54.9 40.0-77.0 % Lymphocytes (%) (Auto) 30.7 21.0-51.0 % Monocytes (%) (Auto) 7.5 3.0-13.0 % Eosinophils (%) (Auto) 5.9 0.0-8.0 % Basophils (%) (Auto) 0.6 0.0-5.0 % Neutrophils # (Auto) 2.7 1.8-7.7 K/uL Lymphocytes # (Auto) 1.5 1.0-4.8 K/uL Monocytes # (Auto) 0.4 0.1-1.0 K/uL Eosinophils # (Auto) 0.29 0.00-0.70 K/uL Basophils # (Auto) 0.03 0.00-0.20 K/uL Absolute Immature Granulocyte (auto 0.02 0-1 K/uL Nucleated Red Blood Cells 0.0 0.0-0.19 % Sodium Level 134 L 136-145 mmol/L Potassium Level 3.3 L 3.5-5.1 mmol/L Chloride Level 100 L 101-111 mmol/L Carbon Dioxide Level 26 21-32 mmol/L Blood Urea Nitrogen 9 7-18 mg/dL Creatinine 0.6 0.5-1.3 mg/dL Glomerular Filtration Rate Calc 113 >90 mL/min Random Glucose 96 70-105 mg/dL Total Calcium 8.7 8.5-10.1 mg/dL Lactic Acid Level 1.3 0.8-2.5 mmol/L Prothrombin Time 12.3 H 9.6-11.6 SEC Prothromb Time International Ratio 1.15 0.85-1.15 Activated Partial Thromboplast Time 26.8 26.3-35.5 SEC Hemoglobin A1c 5.1 4.0-6.0 % Estimated Average Glucose (eAG) 100 70-126 mg/dL Total Creatine Kinase 58 21-232 U/L C-Reactive Protein, Quantitative 13.60 H 0.5-3.0 mg/L Procalcitonin < 0.05 L 0.05-0.5 ng/mL Thyroid Stimulating Hormone (TSH) 2.94 0.36-3.74 uIU/mL Current Medications Medications (Trade) Dose Ordered Sig/Jonatan Route PRN Reason Start Time Stop Time Status Last Admin Dose Admin Acetaminophen (TYLenol 500MG TAB) 500 mg Q6H PRN PO MILD PAIN (1-3) 02/17/24 14:00 03/18/24 13:59 Amlodipine Besylate (NorvASC 5MG TAB) 5 mg DAILY PO 02/18/24 09:00 03/19/24 08:59 02/19/24 08:49 5 MG Cefepime HCl (MAXipime 1 GM vial) 1 gm Q12H IVPB 02/17/24 13:00 02/18/24 12:22 DC 02/18/24 12:07 1 GM Chlordiazepoxide HCl (LIBrium 25 MG CAP) 25 mg Q2H PRN PO ALCOHOL WITHDRAWAL PROTOCOL 02/17/24 19:30 02/24/24 19:29 Clotrimazole (Lotrisone Cream) 1 APPL AM TP 02/18/24 12:30 03/19/24 12:29 02/19/24 08:55 1 GM Diphenhydramine HCl (BENAdryl INJ) 25 mg Q4H PRN IV ITCHING 02/17/24 23:00 03/18/24 22:59 02/19/24 04:45 25 MG Doxycycline Hyclate 250 ml @ 125 mls/hr Q12H IV 02/17/24 14:00 02/18/24 12:22 DC 02/18/24 04:42 125 MLS/HR Enoxaparin Sodium (Lovenox) 30 mg DAILY SQ 02/19/24 09:00 03/20/24 08:59 Famotidine (Pepcid 20mg Vial) 20 mg BID IV 02/17/24 21:00 03/18/24 20:59 02/19/24 08:49 20 MG Fluconazole (DiFLUCan 100 mg TAB) 200 mg DAILY PO 02/19/24 09:00 03/20/24 08:59 02/19/24 08:49 200 MG Folic Acid (FOLic ACID 1 MG TABLET) 1 mg DAILY PO 02/18/24 09:00 03/19/24 08:59 02/19/24 08:48 1 MG Hydralazine HCl (APRESOLine 20MG INJ) 10 mg Q2H PRN IV ADMINISTER FOR SBP > 160 02/17/24 19:30 03/18/24 19:29 02/17/24 19:35 10 MG Hydralazine HCl (APRESOLine 20MG INJ) 10 mg Q6H PRN IV ADMINISTER FOR SBP > 180 02/17/24 19:30 02/17/24 19:27 DC Ketorolac Tromethamine (toRADol) 15 mg Q6H PRN IV MODERATE PAIN (4-6) 02/17/24 14:00 02/22/24 13:59 Lorazepam (AtiVAN) 1 mg Q4H PRN IVP ALCOHOL WITHDRAWAL PROTOCOL 02/17/24 19:30 02/24/24 19:29 Magnesium Sulfate 50 ml @ 0 mls/hr PROTOCOL PRN IV hypomagnesemia 02/17/24 15:30 03/18/24 15:29 Morphine Sulfate (morPHINE 2MG SYG) 2 mg Q6H PRN IVP SEVERE PAIN (7-10) 02/17/24 14:00 02/24/24 13:59 02/17/24 18:41 2 MG Nitroglycerin (Nitroglycerin 1gm Oint) 1 inch Q8H TD 02/17/24 19:30 03/18/24 19:29 02/19/24 04:42 1 [facility] Pharmacy Profile Note (Pharmacy Communication) 1 each PROTOCOL PRN MISC ETOH Withdrawal Score changes 02/17/24 19:30 02/17/24 19:24 DC Potassium Chloride 100 ml @ 100 mls/hr AD PRN IV POTASSIUM PROTOCOL 02/17/24 15:30 03/18/24 15:29 Potassium Chloride (K-Dur/Klor-Con 20meq) 20 meq AD PRN PO POTASSIUM PROTOCOL 02/17/24 15:30 03/18/24 15:29 Potassium Chloride (KCl 10% Elixir 20meq/15ml) 20 meq AD PRN PO POTASSIUM PROTOCOL 02/17/24 15:30 03/18/24 15:29 Sodium Chloride 1,000 ml @ 125 mls/hr Q8H IV 02/17/24 14:00 03/18/24 13:59 02/18/24 08:05 125 MLS/HR Thiamine HCl (Vitamin B-1) 100 mg DAILY IVP 02/18/24 09:00 03/19/24 08:59 02/19/24 08:49 100 MG Vancomycin HCl 250 ml @ 125 mls/hr Q12H IV 02/18/24 03:00 02/28/24 02:59 02/19/24 04:35 125 MLS/HR Vancomycin HCl (Vancomycin Protocol) 1 each AD IV 02/17/24 13:00 03/02/24 12:59 DIAGNOSTICS / RADIOLOGY: [ ] ASSESSMENT: Sepsis secondary to bilateral cellulitis POA Hypertension likely reactive History of abdominal hernia Normocytic anemia PLAN: - [facility] - ID evaluated and adjusted antibiotics. Additionally he will be on morphine and Toradol p.r.n. for pain control -check procalcitonin, CRP, TSH, hemoglobin A1c. -wound care - further orders per hospitalization course. Advanced Care Planning Which of the following were discussed: Hospice care: Yes __ No _x_ Therapeutic options: Yes __ No __ Advance directives: Yes __ No __ Other discussions: pt is full code Discussed with who?: patient (Patient, family or surrogates) Voluntary nature of this service was explained to the patient? Yes _x_ No __ Amount of time spent: 25 minutes MD DAVID Santiago SATISH MD Feb 19, 2024 13:15
--- NOTE | 2024-02-19 13:32 | PN ---
SUBJECTIVE: This is a 58-year-old male patient diagnosed with bilateral forearm cellulitis. Ortho has been consulted for possible compartment syndrome and deep abscess. The patient is so far doing good and getting better with some antibiotics and local ointments. His pain has decreased. His swelling has decreased. PHYSICAL EXAMINATION: GENERAL: The patient is awake, alert, oriented x3. He has been afebrile. VITAL SIGNS: Temperature is afebrile, heart rate 79, blood pressure is 132/84. Oxygen saturation 98% on room air. EXTREMITIES: Examination of both the forearm shows multiple abrasions present due to the patient scratching it but swelling has decreased. Forearms are soft and compressible. Motor, sensory is grossly intact to radial nerve, median nerve, ulnar nerve. Radial arteries 2+. Good capillary refill is present. Fingers are warm and pink. ASSESSMENT AND PLAN: Please continue IV antibiotics and local creams. Ortho will sign off. The patient does not have any abscess or compartment syndrome as of now. Any problems, please call us. TID: [id number] RECEIPT: [id number]
[2024-02-19] MEDS: PoTASSium chloRIDE 20MEQ ER 20 MEQ ERTAB PO PRN (15:09)
[2024-02-19] MEDS: ketOROlac 15MG/ML VIAL (15MG/ML) IV PRN (17:49)
[2024-02-20] VITALS: BP 157/87; PULSE 70; RESP 18; TEMP 98.2
[2024-02-20 04:00] VITALS: BP 149/93; PULSE 67; RESP 18; TEMP 98.3
[2024-02-20 05:16] LABS: BASOPHILS # (AUTO) 0.04 K/uL (0.00-0.20); BASOPHILS % (AUTO) 0.5 % (0.0-5.0); EOSINOPHILS # (AUTO) 0.17 K/uL (0.00-0.70); EOSINOPHILS % (AUTO) 2.3 % (0.0-8.0); IMMATURE GRANULOCYTE ABSOLUTE 0.02 K/uL (0-1); LYMPHOCYTES # (AUTO) 2.2 K/uL (1.0-4.8); LYMPHOCYTES % (AUTO) 29.8 % (21.0-51.0); MEAN CORPUSCULAR HEMOGLOBIN 32.9 pg (27.0-33.0); MEAN CORPUSCULAR HGB CONC 34.9 g/dL (32.0-36.0); MEAN CORPUSCULAR VOLUME 94.4 fL (79-99); MONOCYTES # (AUTO) 0.4 K/uL (0.1-1.0); MONOCYTES % (AUTO) 5.4 % (3.0-13.0); NEUTROPHILS # (AUTO) 4.6 K/uL (1.8-7.7); NEUTROPHILS % (AUTO) 61.7 % (40.0-77.0); PLATELET COUNT (AUTO) 174 K/uL (130-400); RED BLOOD CELL COUNT(AUTO) 3.92 MIL/uL (4.50-6.20); RED CELL DISTRIBUTION WIDTH 13.9 % (11.0-15.5); WHITE BLOOD COUNT (AUTO) 7.4 K/uL (4.8-10.8)
[2024-02-20 05:43] LABS: CREATININE 0.8 mg/dL (0.5-1.3)
[2024-02-20 08:00] VITALS: O2SAT 100
[2024-02-20 08:04] VITALS: BP 150/97; PULSE 73; RESP 20; TEMP 98.1
[2024-02-20 11:43] VITALS: BP 162/74; PULSE 66; RESP 20; TEMP 98.3
[2024-02-20] MEDS ORDERED: DOXY100T2 PO (13:55)
[2024-02-20] MEDS ORDERED: CLOT15CR5 TP (13:55)
[2024-02-20] MEDS ORDERED: DIPH25CA85 PO (13:55)
--- NOTE | 2024-02-20 15:00 | PN ---
INFECTIOUS DISEASE PROGRESS NOTE Date of Service: Feb 20, 2024 SUBJECTIVE: Patient was seen at bedside in room 429. Patient continues with cellulitis to bilateral upper extremities but improving. Possible dermatophytosis. From Infectious Disease standpoint patient can be discharged on doxycycline x 10 days and continue applying the Lotrisone cream. PHYSICAL EXAM EYES: Anicteric. Pupils equal and reactive. HENT: No oral thrush seen, moist Oral mucosa. NECK: Supple, no JVD or thyromegaly. LUNGS: Good air entry. No rales, no rhonchi. CARDIOVASCULAR: S1, S2 regular. No murmur heard. ABDOMEN: Soft, non tender, bowel sounds present, no organomegaly CENTRAL NERVOUS SYSTEM: Awake, alert, oriented x 3. No focal deficits. SKIN: No rashes, no swelling. LYMPHATICS: No peripheral lymphadenopathy. MUSCULOSKELETAL: No joint swelling, erythema or tenderness. EXTREMITIES: No cyanosis or clubbing. Bilateral upper extremities cellulitis, Possible dermatophytosis. BACK: No deformity, no pressure ulcer. GENITOURINARY: No dysuria or hematuria. Vital Sign (Last 12 Hours) 02/20/24 02/20/24 02/20/24 02/20/24 04:00 08:00 08:04 11:43 Temp 98.2 98.1 98.2 Pulse 67 73 66 Resp 18 20 20 B/P (MAP) 149/93 150/97 162/74 Pulse Ox 97 100 100 100 O2 Delivery Room Air Room Air* Room Air Room Air O2 Flow Rate 0 FiO2 21 l Intake & Output (last 24hrs) 02/19/24 02/19/24 02/20/24 15:00 23:00 07:00 Intake Total 1400 ml Balance 1400 ml LABS: Laboratory: Test 02/20/24 04:52 Range/Units White Blood Count 7.4 4.8-10.8 K/uL Red Blood Count 3.92 L 4.50-6.20 MIL/uL Hemoglobin 12.9 L 14.0-18.0 g/dL Hematocrit 37.0 L 42-54 % Mean Corpuscular Volume 94.4 79-99 fL Mean Corpuscular Hemoglobin 32.9 27.0-33.0 pg Mean Corpuscular Hemoglobin Concent 34.9 32.0-36.0 g/dL Red Cell Distribution Width 13.9 11.0-15.5 % Platelet Count 174 # 130-400 K/uL Mean Platelet Volume 9.6 7.5-10.5 fL Immature Granulocyte % (Auto) 0.3 0-1 % Neutrophils (%) (Auto) 61.7 40.0-77.0 % Lymphocytes (%) (Auto) 29.8 21.0-51.0 % Monocytes (%) (Auto) 5.4 3.0-13.0 % Eosinophils (%) (Auto) 2.3 0.0-8.0 % Basophils (%) (Auto) 0.5 0.0-5.0 % Neutrophils # (Auto) 4.6 1.8-7.7 K/uL Lymphocytes # (Auto) 2.2 1.0-4.8 K/uL Monocytes # (Auto) 0.4 0.1-1.0 K/uL Eosinophils # (Auto) 0.17 0.00-0.70 K/uL Basophils # (Auto) 0.04 0.00-0.20 K/uL Absolute Immature Granulocyte (auto 0.02 0-1 K/uL Nucleated Red Blood Cells 0.0 0.0-0.19 % Sodium Level 132 L 136-145 mmol/L Potassium Level 4.0 3.5-5.1 mmol/L Chloride Level 98 L 101-111 mmol/L Carbon Dioxide Level 22 21-32 mmol/L Blood Urea Nitrogen 14 7-18 mg/dL Creatinine 0.8 0.5-1.3 mg/dL Glomerular Filtration Rate Calc 103 >90 mL/min Random Glucose 102 70-105 mg/dL Total Calcium 9.0 8.5-10.1 mg/dL ASSESSMENT: Bilateral upper extremities cellulitis. Possible dermatophytosis. Obesity. PLAN: From Infectious Disease standpoint patient can be discharged on doxycycline x 10 days. Prescription was written and in chart. Continue applying Lotrisone cream. This case was reviewed and discussed with my supervising physician and the above assessment and plan was formulated and agreed upon. ATTESTATION BY PHYSICIAN I have seen and examined the patient. I reviewed the documentation, medical decision making, and treatment plan as noted by the mid-level provider above. I agree with the findings and plan of care. NACHO LLOYD MD, MIRTA L FNP Feb 20, 2024 15:00
--- NOTE | 2024-02-20 16:45 | DS ---
Discharge Summary Hospital Course Summary: This is a 58-year-old male with no significant past medical history who presented to the hospital secondary to redness in the right and left forearm. The patient states he staying in his friend's house around a week ago and slept in one of the beds. Afterwards he noted that he woke up with redness in the bilateral forearm. He tried placing calamine lotion and aloe vera and noted that his skin was sludging of. He was also having itching in the and the redness spread to the shoulder bilaterally. He noted some serous drainage from the arms. He denies being on any antibiotics and currently does not take any medications. Denied starting any new medications at home. He also noted swelling in the and forearm bilaterally. He is able to move his extremities without issues. Denied any numbness in the arms. Denied any chest pain, shortness of breath, abdominal pain, nausea, vomiting. Denied any falls, syncopal episode. He does work outside but denied falling down or brushing his arms with any plants. Labs in the ED were notable for hemoglobin of 10.8 and hyponatremia possibly due to history of ETOH abuse. 02/18/2024: Patient was seen and examined on the medical floor. Infectious disease consulted for possible dermatophytosis, continued on Vancomycin and topical antifungal cream. Pain managed with Toradol. Benadryl improved with Benadryl. 02/19/2024: Bilateral forearm erythema has improved and patient states the itching is better today. He denies any nausea vomiting fever or chills. Orthopedic surgery has signed off with no evidence of compartment syndrome. 02/20/2024: Patient adamant about leaving to care for his mother at home. Patient counseled on alcohol use and advised to continue antibiotic treatment and antifungal cream applications at home. Patient was also advised to establish PCP in the area due to his recent move from [place]. Patient states he does not need anything for pain but will continue Benadryl to help with itching as needed. Cotton Grower(s): Infectious disease, orthopedic surgery. Procedure(s): PATIENT: STEW THORNTON MR#: [id number] : 1965 SEX: M AGE: 58 LOCATION: [facility] ORDER 1524 STATUS: ADM IN [facility] REPORT#: [id number] SERVICE 152 REASON: cellulitis, swelling ORDERING PHYSICIAN: CORINE CARVER MD PROCEDURE: WRST 2V RT - WRIST 2VWS RT WRIST 2VWS RT HISTORY: Cellulitis and swelling COMPARISON: None TECHNIQUE: 2 images of right wrist were obtained. FINDINGS: Erosive changes are seen of scaphoid, lunate. Radiocarpal joint space narrowing is seen. There is no acute displaced fracture or dislocation. Degenerative changes are seen. IMPRESSION: 1. Findings as described above. DICTATED BY: JOLANTA ZAMUDIO MD DATE: 02/17/241712 ELECTRONICALLY SIGNED BY: JOLANTA ZAMUDIO MD DATE: 02/17/241717 PATIENT: STEW THORNTON MR#: [id number] : 1965 SEX: M AGE: 58 LOCATION: [facility] ORDER 23 STATUS: ADM IN [facility] REPORT#: [id number] SERVICE 152 REASON: cellulitis, swelling ORDERING PHYSICIAN: CORINE CARVER MD PROCEDURE: WRST 2V LT - WRIST 2VWS LT WRIST 2VWS LT HISTORY: Cellulitis, swelling COMPARISON: None TECHNIQUE: 2 images of left wrist were obtained. FINDINGS: Radiocarpal joint space narrowing is seen. There is no acute displaced fracture or dislocation. Degenerative changes are seen. IMPRESSION: 1. Findings as described above. DICTATED BY: JOLANTA ZAMUDIO MD DATE: 02/17/241716 ELECTRONICALLY SIGNED BY: JOLANTA ZAMUDIO MD DATE: 02/17/241719 PATIENT: STEW THORNTON MR#: [id number] : 1965 SEX: M AGE: 58 LOCATION: [facility] ORDER 23 STATUS: ADM IN [facility] REPORT#: [id number] SERVICE 152 REASON: cellulitis, swelling ORDERING PHYSICIAN: CORINE CARVER MD PROCEDURE: SHOL 2V RT - SHOULDER COMP 2+VWS RT SHOULDER COMP 2+VWS RT HISTORY: Cellulitis COMPARISON: None TECHNIQUE: 2 images of right shoulder were obtained. FINDINGS: There is no acute displaced fracture or dislocation. Degenerative changes are seen. IMPRESSION: 1. Findings as described above. DICTATED BY: JOLANTA ZAMUDIO MD DATE: 02/17/241729 ELECTRONICALLY SIGNED BY: JOLANTA ZAMUDIO MD DATE: 02/17/241732 PATIENT: STEW THORNTON MR#: [id number] : 1965 SEX: M AGE: 58 LOCATION: [facility] ORDER 23 STATUS: ADM IN [facility] REPORT#: [id number] SERVICE 21 REASON: cellulitis, swelling ORDERING PHYSICIAN: CORINE CARVER MD PROCEDURE: SHOL 2V LT - SHOULDER COMP 2+VWS LT SHOULDER COMP 2+VWS LT HISTORY: Cellulitis, swelling COMPARISON: None TECHNIQUE: 2 images of left shoulder were obtained FINDINGS: There is no acute displaced fracture or dislocation. Degenerative changes are seen. IMPRESSION: 1. Findings as described above. DICTATED BY: JOLANTA ZAMUDIO MD DATE: 02/17/241743 ELECTRONICALLY SIGNED BY: JOLANTA ZAMUDIO MD DATE: 02/17/24 175 PATIENT: STEW THORNTON MR#: [id number] : 1965 SEX: M AGE: 58 LOCATION: [facility] ORDER 23 STATUS: ADM IN [facility] REPORT#: [id number] SERVICE 21 REASON: cellulitis, swelling ORDERING PHYSICIAN: CORINE CARVER MD PROCEDURE: FORARMR - FOREARM 2VWS RT FOREARM 2VWS RT HISTORY: Cellulitis COMPARISON: None TECHNIQUE: 2 images of right forearm were obtained. FINDINGS: There is no acute displaced fracture or dislocation. There is soft tissue swelling. Degenerative changes are seen. IMPRESSION: 1. Findings as described above. DICTATED BY: JOLANTA ZAMUDIO MD DATE: 02/17/241730 ELECTRONICALLY SIGNED BY: JOLANAT ZAMUDIO MD DATE: 02/17/241733 PATIENT: STEW THORNTON MR#: [id number] : 1965 SEX: M AGE: 58 LOCATION: [facility] ORDER 23 STATUS: ADM IN REPORT#: [id number] SERVICE 152 REASON: cellulitis, swelling ORDERING PHYSICIAN: CORINE CARVER MD PROCEDURE: FORARML - FOREARM 2VWS LT FOREARM 2VWS LT HISTORY: Cellulitis and swelling COMPARISON: None TECHNIQUE: 2 images of left forearm were obtained. FINDINGS: There is no acute displaced fracture or dislocation. There is soft tissue swelling. Degenerative changes are seen. IMPRESSION: 1. Findings as described above. DICTATED BY: JOLANTA ZAMUDIO MD DATE: 02/17/241718 ELECTRONICALLY SIGNED BY: JOLANTA ZAMUDIO MD DATE: 02/17/241726 Assessment/Plan: ASSESSMENT: Sepsis secondary to bilateral cellulitis POA Hypertension likely reactive History of abdominal hernia Normocytic anemia Hyponatremia Discharge Instructions: Establish primary care and follow up with PCP in 3-5 days. Home Medications: Active Scripts Clotrimazole/Betamethasone Dip (Clotrimazole-Betamethasone Crm) 1 %-0.05 % Cream..g., 45 GM TP AM for 14 Days, #3 APPL Prov:ABAD FABIAN MD 02/20/24 Diphenhydramine HCl (Benadryl) 25 Mg Capsule, 25 MG PO BID PRN for ITCHING for 14 Days, #28 CAP Prov:ABAD FABIAN MD 02/20/24 Doxycycline Hyclate (Doxycycline Hyclate) 100 Mg Tablet, 1 TAB PO BID for 7 Days, #14 TAB 0 Refills Prov:ABAD FABIAN MD 02/20/24 New Medications: Clotrimazole/Betamethasone Dip (Clotrimazole-Betamethasone Crm) 1 %-0.05 % Cre am..g. 45 GM TP AM for 14 Days, #3 APPL Diphenhydramine HCl (Benadryl) 25 Mg Capsule 25 MG PO BID PRN for ITCHING for 14 Days, #28 CAP Doxycycline Hyclate (Doxycycline Hyclate) 100 Mg Tablet 1 TAB PO BID for 7 Days, #14 TAB 0 Refills Time spent arranging discharge: 1-30 minutes ATTESTATION BY PHYSICIAN I have seen and examined the patient. I reviewed the documentation, medical decision making, and treatment plan as noted by the resident provider above. I agree with the findings and plan of care. Neo Morrell MD, NEHA MD Feb 20, 2024 16:45
--- NOTE | 2024-02-20 22:19 | PN ---
INFECTIOUS DISEASE FOLLOWUP NOTE DATE OF SERVICE: 02/19/2024 SUBJECTIVE: The patient is seen and examined at bedside. No fever or chills. Denies rashes and itchiness. Both forearm are better. No cough. No hemoptysis or pleuritic pain. Denied depression. No suicidal ideation. No heat or cold intolerance. No dysuria or hematuria. PHYSICAL EXAMINATION: VITAL SIGNS: Temperature today 98.5. EYES: No icterus. Pupils equal and reactive. HENT: No oral thrush seen. Moist oral mucosa. NECK: Supple, no JVD or thyromegaly. LUNGS: Good air entry. No rales, no rhonchi. CARDIOVASCULAR: S1, S2 regular. No murmur heard. ABDOMEN: Full, soft and obese. No organomegaly. CENTRAL NERVOUS SYSTEM: Awake, alert, oriented x 3. No focal deficits. SKIN: No rashes, no itchiness. LYMPHATIC: No peripheral lymphadenopathy. BACK: No deformity, no pressure ulcer. EXTREMITIES: Cellulitis and ulceration involving both forearms. ASSESSMENT: A 58-year-old male with multiple problems, which include: * Bilateral forearm cellulitis and excoriation. * Dermatophytosis. * Obesity. PLAN: * Continue Lotrimin cream. * Continue fluconazole. * Continue vancomycin. * Continue wound care. * Continue pain management. TID: [id number] RECEIPT: [id number]
== END 2024-02-20 14:30 | disposition home or self-care (01) | DRG 720 ==
LOC: EDH 11:06 → EDHIP 13:48 → 4AH 21:13
PROVIDERS: ADMIT Internal Medicine; ATTEND Internal Medicine
DX: A41.9 Sepsis, unspecified organism (principal); E87.1 Hypo-osmolality and hyponatremia; B35.9 Dermatophytosis, unspecified; D64.9 Anemia, unspecified; I10 Essential (primary) hypertension; E66.9 Obesity, unspecified; L03.114 Cellulitis of left upper limb; L03.113 Cellulitis of right upper limb; Z68.35 Body mass index [BMI] 35.0-35.9, adult
CPT/HCPCS: 36415; 73030; 73090; 73100; 80048; 80305; 82550; 83036; 83605; 84145; 84443; 85025; 85610; 85730; 86140; 87040; 93005; 96375; G0378; J0360; J0692; J1200; J1650; J1885; J2270; J3370; J3411; J3490; J7030